=== PATIENT | female | born 1960 | race Caucasian/White ===

== ENCOUNTER → 2016-08-10 | Outpatient (CLI) | payer BC ==
[2016-08-10 08:17] LABS: Basophils # (A) 0.1 k/uL (0-0.2); Basophils % (A) 1 %; CH 30.9; CHCM 33.1; Eosinophils # (A) 0.2 k/uL (0-0.7); Eosinophils % (A) 3 %; HCT 41.9 % (34.0-46.0); HDW 2.43; HGB 13.4 gm/dL (11.4-16.0); Luc % (Auto) 3; Lymphocytes # (A) 1.5 k/uL (1.0-4.8); Lymphocytes % (A) 21 %; MCV 93.9 fL (80.0-100.0); Monocytes # (A) 0.4 k/uL (0-1.0); Monocytes % (A) 5 %; Neutrophils # (A) 4.6 k/uL (1.3-7.7); Neutrophils % (A) 66 %; RBC 4.46 m/uL (3.80-5.40); RDW 13.6 % (11.5-15.5); WBC (Perox) 7.32
[2016-08-10 08:26] LABS: ALT 51 U/L (9-52); AST 27 U/L (14-36); Alkaline Phosphatase 92 U/L (38-126); Anion Gap 12 mmol/L; Blood Urea Nitrogen 17 mg/dL (7-17); Calcium 9.8 mg/dL (8.4-10.2); Carbon Dioxide 28 mmol/L (22-30); Chloride 103 mmol/L (98-107); Cholesterol 167 mg/dL (<200); Glucose 101 mg/dL (74-99); HDL Cholesterol 73 mg/dL (40-60); Non-African American GFR(MDRD) >60 (>60 ml/min/1.73 sqM); Potassium 4.3 mmol/L (3.5-5.1); Sodium 143 mmol/L (137-145); Total Bilirubin 1.1 mg/dL (0.2-1.3); Total Protein 7.6 g/dL (6.3-8.2); Triglycerides 151 mg/dL (<150)
[2016-08-10 08:48] LABS: Appearance,Urine Clear (Clear); Bilirubin,Urine Negative (Negative); Glucose,Urine (UA) Negative (Negative); Ketones,Urine Negative (Negative); Leukocyte Esterase,Urine Negative (Negative); Nitrite,Urine Negative (Negative); Particle Count 164; Protein,Urine Negative (Negative); RBC,Urine <1 /hpf (0-5); UA Billing (MACRO vs. MICRO) MICRO; Urobilinogen,Urine <2.0 mg/dL (<2.0)
[2016-08-10 09:51] LABS: Erythrocyte Sedimentation Rate 10 mm/hr (0-20)
[2016-08-10 13:45] LABS: Hemoglobin A1C 5.7 % (4.2-6.1)
== END ==
LOC: LABWHC1 07:42
PROVIDERS: ATTEND Internal Medicine
DX: Z00.00 Encounter for general adult medical examination without abnormal findings (principal); E11.9 Type 2 diabetes mellitus without complications; E55.9 Vitamin D deficiency, unspecified; M19.90 Unspecified osteoarthritis, unspecified site
CPT/HCPCS: 36415; 80053; 80061; 81001; 82043; 82306; 83036; 85025; 85652

== ENCOUNTER → 2017-03-02 | Outpatient (CLI) | payer BC ==
[2017-03-02 10:22] LABS: Basophils # (A) 0.1 k/uL (0-0.2); Basophils % (A) 1 %; CHCM 32.2; Eosinophils # (A) 0.2 k/uL (0-0.7); Eosinophils % (A) 2 %; HCT 41.9 % (34.0-46.0); HDW 2.43; HGB 13.4 gm/dL (11.4-16.0); Luc # (Auto) 0.16; Luc % (Auto) 2; Lymphocytes # (A) 1.5 k/uL (1.0-4.8); Lymphocytes % (A) 23 %; MCH 30.9 pg (25.0-35.0); MCV 96.7 fL (80.0-100.0); Mean Platelet Volume 6.8; Monocytes # (A) 0.4 k/uL (0-1.0); Monocytes % (A) 6 %; Neutrophils # (A) 4.4 k/uL (1.3-7.7); Neutrophils % (A) 66 %; RBC 4.33 m/uL (3.80-5.40); RDW 13.3 % (11.5-15.5); WBC 6.8 k/uL (3.8-10.6); WBC (Perox) 6.66
[2017-03-02 10:40] LABS: ALT 42 U/L (9-52); AST 25 U/L (14-36); Alkaline Phosphatase 98 U/L (38-126); Anion Gap 12 mmol/L; Blood Urea Nitrogen 18 mg/dL (7-17); Carbon Dioxide 27 mmol/L (22-30); Chloride 106 mmol/L (98-107); Cholesterol 199 mg/dL (<200); Glucose 90 mg/dL (74-99); HDL Cholesterol 86 mg/dL (40-60); Non-African American GFR(MDRD) >60 (>60 ml/min/1.73 sqM); Potassium 4.2 mmol/L (3.5-5.1); Sodium 145 mmol/L (137-145); Total Bilirubin 0.9 mg/dL (0.2-1.3)
[2017-03-02 15:02] LABS: Hemoglobin A1C 5.4 % (4.2-6.1)
== END ==
LOC: LABWHC1 08:31
PROVIDERS: ATTEND Internal Medicine
DX: E11.9 Type 2 diabetes mellitus without complications (principal); E78.5 Hyperlipidemia, unspecified; E55.9 Vitamin D deficiency, unspecified; Z13.9 Encounter for screening, unspecified
CPT/HCPCS: 36415; 80053; 80061; 82306; 83036; 85025; 86803

== ENCOUNTER → 2017-08-21 | Outpatient (CLI) | payer BC ==
[2017-08-21 13:39] VITALS: BP 139/79; PULSE 80; TEMP 98.5; BMI 24.7
--- NOTE | 2017-08-21 14:15 | P.HPOB ---
History of Present Illness H&P Date: 08/21/17 Chief Complaint: The patient is here for her routine gynecologic exam and mammogram. This is a 57-year-old with LMP of 2014. The patient is without gynecologic complaints. She denies any postmenopausal bleeding. Review of Systems She has lost about 10 pounds over the last year. She denies respiratory, cardiac, or G.I. problems. Past Medical History Past Medical History: Diabetes Mellitus (Diet controlled type II diabetes), GERD /Reflux, Hyperlipidemia Additional Past Medical History / Comment(s): mammo 08/21/17 History of Any Multi-Drug Resistant Organisms: None Reported Additional Past Surgical History / Comment(s): Right wrist surgery in 1984. Colonoscopy in 2013. 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 - Past Family History Father Family Medical History: Diabetes Mellitus Mother Family Medical History: Myocardial Infarction ([place]) Additional Family Medical History / Comment(s): Maternal aunt had breast cancer. Medications and Allergies Home Medications and Allergies Comment(s): Vitamin D supplement 1 daily and Tums for calcium 1 b.i.d. Home Medications Medication Instructions Recorded Confirmed Type Iron* 1 tab PO DAILY 10/09/13 08/21/17 History Multivitamins, Thera [Multivitamin] 1 each PO DAILY 10/09/13 08/21/17 History Omeprazole [Omeprazole] 20 mg PO DAILY 10/09/13 08/21/17 History Simvastatin [Simvastatin] 40 mg PO HS 10/09/13 08/21/17 History Allergies Allergy/AdvReac Type Severity Reaction Status Date / Time sulfamethoxazole AdvReac Severe Rash/Hives Unverified 08/21/17 13:41 [From Bactrim] trimethoprim [From Bactrim] AdvReac Severe Rash/Hives Unverified 08/21/17 13:41 penicillin V AdvReac Rash/Hives Verified 08/21/17 13:41 Sulfa (Sulfonamide AdvReac Rash/Hives Verified 08/21/17 13:41 Antibiotics) Exam - Vital Signs Vital signs: Vital Signs Temp Pulse BP 08/21/17 13:36 98.5 F 80 139/79 Intake and Output 08/20/17 08/21/17 08/21/17 22:59 06:59 14:59 Other: Weight 61.235 kg Height 5'2", BMI 24.7. This is a well-developed well-nourished white female who is alert and oriented times 3 in no acute distress. HEENT: Within normal limits. NECK: Supple without mass or thyromegaly. CHEST AND LUNGS: Clear to auscultation. HEART: Regular rate and rhythm. BREASTS: Are without mass or discharge. AXILLARY EXAM: Negative for adenopathy. BACK: Negative for CVA tenderness. ABDOMEN: Soft, nontender, without palpable masses. PELVIC EXAM: Normal external genitalia without significant atrophy. Cervix reveals an end of cervical polyp measuring approximately 5 x 4 mm. This has a benign appearance and is not inflamed. Vagina appears normal. There is no unusual discharge. There is no evidence of prolapse. The uterus is midposition , nongravid size and nontender. There are no palpable adnexal masses or tenderness. RECTAL EXAM: rectovaginal exam is negative for mass or tenderness and is negative for occult blood. EXTREMITIES: Nontender. IMPRESSION: 1. 57 year old female who is now menopausal after 2 years of amenorrhea. 2. Benign appearing endocervical polyp. She was previously referred to Dr. Dickerson for this reason in 2015. The pathology report was benign. The polyp may have grown back and is asymptomatic. PLAN: 1. Pap smear was performed. 2. Breast examination was discussed. 3. Screening mammogram will be done today. 4. We have discussed options for this cervical polyp. We will proceed with conservative management at this time. She will call if she is having problems such as vaginal bleeding including postcoital bleeding. 5. Osteoporosis prevention was discussed. 6. She will return one year and PRN.
--- NOTE | 2017-08-23 13:12 | MM ---
Reason for exam: screening (asymptomatic). Last mammogram was performed 1 year and 5 months ago. History: Patient is postmenopausal. Family history of breast cancer in maternal aunt. Took hormonal contraceptives for 3 years. Physical Findings: A clinical breast exam by your physician is recommended on an annual basis and results should be correlated with mammographic findings. MG 3D Screening Mammo W/Cad Bilateral CC and MLO view(s) were taken. Prior study comparison: March 28, 2016, bilateral MG screening mammo w CAD. November 10, 2014, left breast MG work up mamm w CAD LT. The breast tissue is heterogeneously dense. This may lower the sensitivity of mammography. No significant changes when compared with prior studies. ASSESSMENT: Negative, BI-RAD 1 RECOMMENDATION: Routine screening mammogram of both breasts in 1 year.
== END | disposition home or self-care (01) ==
LOC: WWCWWP 13:18
PROVIDERS: ATTEND Obstetrics & Gynecology
DX: Z12.31 Encounter for screening mammogram for malignant neoplasm of breast (principal)
CPT/HCPCS: 77063; 77067

== ENCOUNTER → 2018-03-04 | Outpatient (CLI) | payer BC ==
[2018-03-04 09:12] LABS: Basophils % (A) 1 %; Eosinophils # (A) 0.1 k/uL (0-0.7); Eosinophils % (A) 3 %; HCT 41.9 % (34.0-46.0); HGB 14.1 gm/dL (11.4-16.0); Lymphocytes # (A) 1.3 k/uL (1.0-4.8); Lymphocytes % (A) 26 %; MCH 30.2 pg (25.0-35.0); MCHC 33.8 g/dL (31.0-37.0); MCV 89.5 fL (80.0-100.0); Mean Platelet Volume 6.3; Monocytes # (A) 0.3 k/uL (0-1.0); Monocytes % (A) 6 %; Neutrophils # (A) 3.2 k/uL (1.3-7.7); Neutrophils % (A) 63 %; Platelet Count 360 k/uL (150-450); RBC 4.68 m/uL (3.80-5.40); RDW 13.5 % (11.5-15.5)
[2018-03-04 09:31] LABS: ALT 26 U/L (9-52); AST 25 U/L (14-36); Albumin 4.6 g/dL (3.5-5.0); Alkaline Phosphatase 100 U/L (38-126); Anion Gap 10 mmol/L; Blood Urea Nitrogen 15 mg/dL (7-17); Calcium 9.9 mg/dL (8.4-10.2); Carbon Dioxide 27 mmol/L (22-30); Chloride 107 mmol/L (98-107); Glucose 92 mg/dL (74-99); HDL Cholesterol 79 mg/dL (40-60); Potassium 4.5 mmol/L (3.5-5.1); Sodium 144 mmol/L (137-145); Total Bilirubin 0.9 mg/dL (0.2-1.3); Total Protein 7.8 g/dL (6.3-8.2); Triglycerides 148 mg/dL (<150)
[2018-03-04 09:47] LABS: Cholesterol 197 mg/dL (<200); LDL Cholesterol,Calculated 88 mg/dL (0-99)
[2018-03-04 10:56] LABS: Appearance,Urine Clear (Clear); Bilirubin,Urine Negative (Negative); Blood,Urine Trace (Negative); Color,Urine Colorless; Glucose,Urine (UA) Negative (Negative); Ketones,Urine Negative (Negative); Leukocyte Esterase,Urine Negative (Negative); Mucus,Urine Rare /hpf; Nitrite,Urine Negative (Negative); PH, Urine 6.5 (5.0-8.0); Protein,Urine Negative (Negative); RBC,Urine <1 /hpf (0-5); Specific Gravity,Urine 1.003 (1.001-1.035); Urobilinogen,Urine <2.0 mg/dL (<2.0); WBC,Urine <1 /hpf (0-5)
[2018-03-04 17:15] LABS: Hemoglobin A1C 5.5 % (4.0-6.0)
== END | disposition home or self-care (01) ==
LOC: LABWHC1 08:07
PROVIDERS: ATTEND Internal Medicine
DX: E78.5 Hyperlipidemia, unspecified (principal); E11.9 Type 2 diabetes mellitus without complications; E55.9 Vitamin D deficiency, unspecified
CPT/HCPCS: 36415; 80053; 80061; 81001; 82043; 82306; 82570; 83036; 85025

== ENCOUNTER → 2018-10-23 | Outpatient (CLI) | payer BC ==
[2018-10-23 10:53] VITALS: BP 127/76; PULSE 73; RESP 12; TEMP 98.6; BMI 26.3
--- NOTE | 2018-10-23 11:35 | P.HPOB ---
History of Present Illness H&P Date: 10/23/18 Chief Complaint: The patient is here for her routine gynecologic exam and ma mmogram. This is a 58-year-old with an LMP of 2014. The patient is without gynecologic complaints and denies any postmenopausal bleeding. She does have occasional mild hot flashes that are not very bothersome. Review of Systems She is gained about 9 pounds over the last year. She denies respiratory, cardiac, or G.I. problems. Past Medical History Past Medical History: Diabetes Mellitus, GERD/Reflux, Hyperlipidemia Additional Past Medical History / Comment(s): Type II diabetes. 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 History of Any Multi-Drug Resistant Organisms: None Reported Past Surgical History: Orthopedic Surgery Additional Past Surgical History / Comment(s): Right wrist surgery in 1984. Colonoscopy in 2013. 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 - Past Family History Father Family Medical History: Diabetes Mellitus Additional Family Medical History / Comment(s): Colon polyps. Mother Family Medical History: Myocardial Infarction ([place]) Additional Family Medical History / Comment(s): Maternal aunt had breast cancer. Medications and Allergies Home Medications Medication Instructions Recorded Confirmed Type Multivitamins, Thera [Multivitamin] 1 each PO DAILY 10/09/13 08/21/17 History Omeprazole 20 mg PO DAILY 10/09/13 08/21/17 History Simvastatin 40 mg PO HS 10/09/13 08/21/17 History Allergies Allergy/AdvReac Type Severity Reaction Status Date / Time sulfamethoxazole AdvReac Severe Rash/Hives Unverified 08/21/17 13:41 [From Bactrim] trimethoprim [From Bactrim] AdvReac Severe Rash/Hives Unverified 08/21/17 13:41 penicillin V AdvReac Rash/Hives Verified 08/21/17 13:41 Sulfa (Sulfonamide AdvReac Rash/Hives Verified 08/21/17 13:41 Antibiotics) Exam Vital Signs Temp Pulse Resp BP 10/23/18 10:42 98.6 F 73 12 127/76 Intake and Output 0510/23/18 10/23/18 22:59 06:59 14:59 Other: Weight 65.317 kg Height 5'2", weight 144 pounds, BMI 26.3. This is a well-developed well-nourished white female who is alert and oriented times 3 in no acute distress. HEENT: Within normal limits. NECK: Supple without mass or thyromegaly. At the medial aspect of the right clavicle, there is a 2.5 cm lipoma which is soft and nontender. CHEST AND LUNGS: Clear to auscultation. HEART: Regular rate and rhythm. BREASTS: Are without mass or discharge. AXILLARY EXAM: Negative for adenopathy. BACK: Negative for CVA tenderness. ABDOMEN: Soft, nontender, without palpable masses. PELVIC EXAM: Normal external genitalia. Vagina appear normal with mild atrophy. There is a benign appearing endocervical polyp at the external os measuring approximately 6 x 6 mm. Which appears stable from her previous exam. There is no unusual discharge. There is no evidence of prolapse. The uterus is midposition, nongravid size and nontender. There are no palpable adnexal masses or tenderness. RECTAL EXAM: rectovaginal exam is negative for mass or tenderness and is negative for occult blood. EXTREMITIES: Nontender. IMPRESSION: 1. 58-year-old menopausal female with stable asymptomatic endocervical polyp. Otherwise unremarkable gynecologic exam. 2. 2.5 cm lipoma near the medial aspect of the right clavicle. PLAN: 1. Pap smear was deferred since she had a normal one on 08/21/2017. 2. Self breast awareness was discussed with the patient. 3. Screening mammogram will be done today. 4. We have discussed the endocervical polyp and lipoma. We will follow both of these conservatively. She was instructed to call if she is having problems such postmenopausal bleeding or if she is noticing change in the lipoma. 5. Osteoporosis prevention was discussed. I have stressed the importance of adequate calcium, vitamin D and regular exercise. Recommended amounts of calcium and vitamin D were also discussed. We will plan on doing bone density testing next year. 6.She was advised to return in one year for her annual well woman exam.
--- NOTE | 2018-10-25 11:11 | MM ---
Reason for exam: screening (asymptomatic). Last mammogram was performed 1 year and 2 months ago. History: Patient is postmenopausal. Family history of breast cancer in maternal aunt. Took hormonal contraceptives for 3 years. Physical Findings: A clinical breast exam by your physician is recommended on an annual basis and results should be correlated with mammographic findings. MG 3D Screening Mammo W/Cad Bilateral CC and MLO view(s) were taken. Prior study comparison: August 21, 2017, bilateral MG 3d screening mammo w/cad. March 28, 2016, bilateral MG screening mammo w CAD. The breast tissue is heterogeneously dense. This may lower the sensitivity of mammography. There are benign appearing round calcifications bilaterally. There is chronic nodularity in the left breast central aspect. There is no discrete abnormality. ASSESSMENT: Benign, BI-RAD 2 RECOMMENDATION: Routine screening mammogram of both breasts in 1 year.
== END ==
LOC: WWCWWP 10:39
PROVIDERS: ATTEND Obstetrics & Gynecology
DX: Z12.31 Encounter for screening mammogram for malignant neoplasm of breast (principal)
CPT/HCPCS: 77063; 77067

== ENCOUNTER → 2019-03-12 | Outpatient (CLI) | payer BC ==
[2019-03-12 08:54] LABS: Basophils # (A) 0.1 k/uL (0-0.2); Basophils % (A) 2 %; Eosinophils # (A) 0.2 k/uL (0-0.7); Eosinophils % (A) 3 %; HCT 45.4 % (34.0-46.0); HGB 14.9 gm/dL (11.4-16.0); Lymphocytes # (A) 1.9 k/uL (1.0-4.8); Lymphocytes % (A) 27 %; MCHC 32.8 g/dL (31.0-37.0); MCV 94.4 fL (80.0-100.0); Mean Platelet Volume 6.5; Monocytes # (A) 0.4 k/uL (0-1.0); Monocytes % (A) 6 %; Neutrophils # (A) 4.1 k/uL (1.3-7.7); Neutrophils % (A) 60 %; Platelet Count 402 k/uL (150-450); RBC 4.81 m/uL (3.80-5.40); RDW 13.7 % (11.5-15.5); WBC 6.9 k/uL (3.8-10.6)
[2019-03-12 09:25] LABS: Appearance,Urine Clear (Clear); Bilirubin,Urine Negative (Negative); Blood,Urine Negative (Negative); Color,Urine Colorless; Glucose,Urine (UA) Negative (Negative); Ketones,Urine Negative (Negative); Leukocyte Esterase,Urine Negative (Negative); Nitrite,Urine Negative (Negative); Protein,Urine Negative (Negative); Specific Gravity,Urine 1.003 (1.001-1.035); Urobilinogen,Urine <2.0 mg/dL (<2.0)
[2019-03-12 16:12] LABS: African American GFR (CKD) 109.9 (60.0-200.0); Albumin 4.8 g/dL (3.80-4.90); Albumin/Globulin Ratio 2.09 (1.60-3.17); Anion Gap 11.1 mmol/L (4.00-12.00); BUN/Creat Ratio 18.57 Ratio (12.00-20.00); Carbon Dioxide 25.9 mmol/L (21.6-31.8); Chol/HDL Ratio 2.71; Globulin 2.3 g/dL (1.6-3.3); LDL Cholesterol,Calculated 92.6 mg/dL (0.0-131.0); Potassium 4.2 mmol/L (3.5-5.5); Total Protein 7.1 g/dL (6.2-8.2); VLDL Calculation 40.4 mg/dL (5.00-40.00)
== END | disposition home or self-care (01) ==
LOC: LABWHC1 07:46
PROVIDERS: ATTEND Internal Medicine
DX: E11.9 Type 2 diabetes mellitus without complications (principal); E78.5 Hyperlipidemia, unspecified; E55.9 Vitamin D deficiency, unspecified
CPT/HCPCS: 36415; 80053; 80061; 81003; 82043; 82306; 82570; 84443; 85025

== ENCOUNTER → 2020-01-21 | Outpatient (CLI) | payer BC ==
[2020-01-21 09:46] VITALS: BP 136/86; PULSE 52; RESP 18; TEMP 98.6
--- NOTE | 2020-01-21 10:19 | P.HPOB ---
History of Present Illness H&P Date: 01/21/20 Chief Complaint: The patient is here for her routine gynecologic exam and ma mmogram. This is a 59-year-old with an LMP of 2014. The patient has a known endocervical polyp which was removed [place] [address] Dickerson and has recurred and has been followed conservatively. She denies any problems with this. She denies any postmenopausal bleeding. She has been experiencing some vaginal dryness with sexual intercourse. She has not tried any lubrication. Review of Systems The patient has gained 6 pounds over the last year. She denies respiratory, cardiac, or G.I. problems. Past Medical History Past Medical History: Diabetes Mellitus, GERD/Reflux, Hyperlipidemia Additional Past Medical History / Comment(s): Type II diabetes. 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 History of Any Multi-Drug Resistant Organisms: None Reported Past Surgical History: Orthopedic Surgery Additional Past Surgical History / Comment(s): Right wrist surgery in 1984. Colonoscopy in 2013. 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 - Past Family History Father Family Medical History: Diabetes Mellitus Additional Family Medical History / Comment(s): Colon polyps. Mother Family Medical History: Myocardial Infarction ([place]) Additional Family Medical History / Comment(s): Maternal aunt had breast cancer. Medications and Allergies Home Medications Medication Instructions Recorded Confirmed Type Multivitamins, Thera [Multivitamin] 1 each PO DAILY 10/09/13 01/21/20 History Omeprazole 20 mg PO AC-LUNCH PRN 10/09/13 01/21/20 History Simvastatin 40 mg PO HS 10/09/13 01/21/20 History Aspirin 81 mg PO HS 01/21/20 01/21/20 History Cholecalciferol [Vitamin D3 (25 2,000 unit PO DAILY 01/21/20 01/21/20 History Mcg = 1000 Iu)] Cyanocobalamin (Vitamin B-12) 3,000 mcg PO DAILY 01/21/20 01/21/20 History [Vitamin B-12] L.acidoph,Paracasei, B.lactis 1 each PO DAILY 01/21/20 01/21/20 History [Probiotic] Ubidecarenone [Co Q-10] 200 mg PO DAILY 01/21/20 01/21/20 History Allergies Allergy/AdvReac Type Severity Reaction Status Date / Time sulfamethoxazole AdvReac Severe Rash/Hives Unverified 01/21/20 09:39 [From Bactrim] trimethoprim [From Bactrim] AdvReac Severe Rash/Hives Unverified 01/21/20 09:39 penicillin V AdvReac Rash/Hives Verified 01/21/20 09:39 Sulfa (Sulfonamide AdvReac Rash/Hives Verified 01/21/20 09:39 Antibiotics) Exam Vital Signs Temp Pulse Resp BP Pulse Ox 01/21/20 09:43 98.6 F 52 L 18 136/86 98 Intake and Output 01/20/20 01/21/20 01/21/20 22:59 06:59 14:59 Other: Weight 68.039 kg Height 5 feet 2-1/2 inches, weight 150 pounds, BMI 27.0. This is a well-developed well-nourished white female who is alert and oriented times 3 in no acute distress. HEENT: Within normal limits. NECK: Supple without mass or thyromegaly. CHEST AND LUNGS: Clear to auscultation. HEART: Regular rate and rhythm. BREASTS: Are without mass or discharge. AXILLARY EXAM: Negative for adenopathy. BACK: Negative for CVA tenderness. ABDOMEN: Soft, nontender, without palpable masses. PELVIC EXAM: Normal external genitalia with mild atrophy. Vagina appear normal. There is an endocervical polyp measuring approximately 0.5 cm and appears benign and unchanged from her previous exam. The rest of the cervix is unremarkable.. There is no unusual discharge. There is no evidence of prolapse. The uterus is midposition, nongravid size and nontender. There are no palpable adnexal masses or tenderness. RECTAL EXAM: Rectovaginal exam is negative for mass or tenderness and is negative for occult blood. EXTREMITIES: Nontender. IMPRESSION: 1. 59-year-old menopausal female with stable asymptomatic endocervical polyp measuring approximately 0.5 cm. Otherwise unremarkable gynecologic exam. 2. History of osteopenia 3. Vaginal dryness with intercourse secondary to genital atrophy from menopause. PLAN: 1. Pap smear was performed. 2. Self breast awareness was discussed with the patient. 3. Screening mammogram will be done today. 4. Osteoporosis prevention was discussed. I have stressed the importance of adequate calcium, vitamin D and regular exercise. Recommended amounts of calcium and vitamin D were also discussed. I have recommended to repeat the bone density test in approximately 1 1/2-2 years 5. She will try an [id number] lubricant for vaginal dryness. We have discussed the option of vaginal estrogen if her symptoms are not improving. She was instructed to call if she would like to proceed with using vaginal estrogen. 6.She was advised to return in one year for her annual well woman exam.
--- NOTE | 2020-01-22 10:24 | MM ---
Reason for exam: screening (asymptomatic). Last mammogram was performed 1 year and 3 months ago. History: Patient is postmenopausal. Family history of breast cancer in maternal aunt. Took hormonal contraceptives for 3 years. Physical Findings: A clinical breast exam by your physician is recommended on an annual basis and results should be correlated with mammographic findings. MG 3D Screening Mammo W/Cad Bilateral CC and MLO view(s) were taken. Prior study comparison: October 23, 2018, bilateral MG 3d screening mammo w/cad. August 21, 2017, bilateral MG 3d screening mammo w/cad. The breast tissue is heterogeneously dense. This may lower the sensitivity of mammography. There are benign appearing round dystrophic calcifications bilaterally. There is no discrete abnormality. ASSESSMENT: Benign, BI-RAD 2 RECOMMENDATION: Routine screening mammogram of both breasts in 1 year.
--- NOTE | 2020-01-27 17:24 | P.PN ---
Progress Note - Text Progress Note Date: 01/27/20 OUTPATIENT FOLLOW-UP NOTE TEST(S)/RESULTS: test results from 01/21/2020 include negative Pap smear and benign mammogram. METHOD OF NOTIFICATION: the patient was notified by phone. PATIENT COMMENTS: the patient is happy to hear these results. DIAGNOSIS: negative Pap smear and benign mammogram. DISCUSSION: PLAN: the patient is to return in one year for her annual well woman exam.
== END | disposition home or self-care (01) ==
LOC: WWCWWP 09:29
PROVIDERS: ATTEND Obstetrics & Gynecology
DX: Z12.31 Encounter for screening mammogram for malignant neoplasm of breast (principal)
CPT/HCPCS: 77063; 77067

== ENCOUNTER → 2020-03-12 | Outpatient (CLI) | payer BC ==
[2020-03-12 10:34] LABS: Appearance,Urine Clear (Clear); Bilirubin,Urine Negative (Negative); Blood,Urine Negative (Negative); Color,Urine Colorless; Glucose,Urine (UA) Negative (Negative); Ketones,Urine Negative (Negative); Leukocyte Esterase,Urine Negative (Negative); Nitrite,Urine Negative (Negative); Protein,Urine Negative (Negative); Specific Gravity,Urine 1.002 (1.001-1.035); Urobilinogen,Urine <2.0 mg/dL (<2.0)
[2020-03-12 10:51] LABS: HCT 42.9 % (34.0-46.0); HGB 13.6 gm/dL (11.4-16.0); MCH 30.1 pg (25.0-35.0); MCHC 31.7 g/dL (31.0-37.0); MCV 94.9 fL (80.0-100.0); Mean Platelet Volume 7.9; Platelet Count 374 k/uL (150-450); RBC 4.52 m/uL (3.80-5.40); RDW 13.9 % (11.5-15.5); WBC 6.5 k/uL (3.8-10.6)
[2020-03-12 13:24] LABS: Eosinophils # (M) 0.59 k/uL (0-0.7); Lymphocytes # (M) 1.63 k/uL (1.0-4.8); Monocytes # (M) 0.39 k/uL (0-1.0); Neutrophils % (M) 60 %; Nucleated Red Blood Cells 0 /100 WBC (0-0); Total Cells Counted 100
[2020-03-12 13:27] LABS: Anisocytosis (M) Present; Poikilocytosis (M) Present
[2020-03-12 17:49] LABS: Hemoglobin A1C 5.6 % (4.0-6.0)
[2020-03-12 17:53] LABS: African American GFR (CKD) 92.9 (60.0-200.0); Albumin 4.5 g/dL (3.80-4.90); Albumin/Globulin Ratio 1.88 (1.60-3.17); Anion Gap 10.4 mmol/L (4.00-12.00); BUN/Creat Ratio 17.5 Ratio (12.00-20.00); Calcium 9.7 mg/dL (8.7-10.3); Carbon Dioxide 24.6 mmol/L (21.6-31.8); Chol/HDL Ratio 2.79; Globulin 2.4 g/dL (1.6-3.3); Non-African American GFR(CKD) 80.1 (60.0-200.0); Potassium 4.7 mmol/L (3.5-5.5); Total Bilirubin 1.3 mg/dL (0.2-1.2); Total Protein 6.9 g/dL (6.2-8.2)
[2020-03-12 18:44] LABS: Microalbumin Creatinine Ratio <30 mg/g Creat (0-30); Urine Creatinine 11.4 mg/dL
== END | disposition home or self-care (01) ==
LOC: LABWHC1 08:00
PROVIDERS: ATTEND Internal Medicine
DX: E78.5 Hyperlipidemia, unspecified (principal); E55.9 Vitamin D deficiency, unspecified; E11.9 Type 2 diabetes mellitus without complications
CPT/HCPCS: 36415; 80053; 80061; 81003; 82043; 82306; 82570; 83036; 84443; 85025

== ENCOUNTER → 2021-02-22 | Outpatient (CLI) | payer BC ==
[2021-02-22 09:43] VITALS: BP 129/73; PULSE 86; RESP 16; TEMP 98.9
--- NOTE | 2021-02-22 10:23 | P.HPOB ---
History of Present Illness H&P Date: 02/22/21 Chief Complaint: The patient is here for her routine gynecologic exam and ma mmogram. This is a 60-year-old with an LMP of 2014. Patient does have occasional hot flashes that seem to come and go. She is otherwise without complaints and denies any postmenopausal bleeding. Review of Systems The patient has gained 7 pounds over the last year. She denies respiratory, cardiac, or G.I. problems. Past Medical History Past Medical History: Diabetes Mellitus, GERD/Reflux, Hyperlipidemia Additional Past Medical History / Comment(s): Type II diabetes. 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 History of Any Multi-Drug Resistant Organisms: None Reported Past Surgical History: Orthopedic Surgery Additional Past Surgical History / Comment(s): Right wrist surgery in 1984. Colonoscopy in 2013(next after 8yr). 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 - Past Family History Father Family Medical History: Diabetes Mellitus Additional Family Medical History / Comment(s): Colon polyps. Mother Family Medical History: Myocardial Infarction ([place]) Additional Family Medical History / Comment(s): Maternal aunt had breast cancer. Medications and Allergies Home Medications Medication Instructions Recorded Confirmed Type Multivitamins, Thera [Multivitamin] 1 each PO DAILY 10/09/13 02/22/21 History Omeprazole 20 mg PO AC-LUNCH PRN 10/09/13 02/22/21 History Simvastatin 40 mg PO HS 10/09/13 02/22/21 History Aspirin 81 mg PO HS 01/21/20 02/22/21 History Cholecalciferol [Vitamin D3 (25 2,000 unit PO DAILY 01/21/20 02/22/21 History Mcg = 1000 Iu)] Cyanocobalamin (Vitamin B-12) 3,000 mcg PO DAILY 01/21/20 02/22/21 History [Vitamin B-12] L.acidoph,Paracasei, B.lactis 1 each PO DAILY 01/21/20 02/22/21 History [Probiotic] Ubidecarenone [Co Q-10] 200 mg PO DAILY 08/26/20 09/28/21 History Allergies Allergy/AdvReac Type Severity Reaction Status Date / Time sulfamethoxazole AdvReac Severe Rash/Hives Unverified 02/22/21 09:24 [From Bactrim] trimethoprim [From Bactrim] AdvReac Severe Rash/Hives Unverified 02/22/21 09:24 penicillin V AdvReac Rash/Hives Verified 02/22/21 09:24 Sulfa (Sulfonamide AdvReac Rash/Hives Verified 02/22/21 09:24 Antibiotics) Exam Vital Signs Temp Pulse Resp BP Pulse Ox 02/22/21 09:39 98.9 F 86 16 129/73 98 Intake and Output 02/21/21 02/22/21 02/22/21 22:59 06:59 14:59 Other: Weight 71.214 kg Height 5 feet 2 inches, weight 157 pounds, BMI 28.7. This is a well-developed well-nourished white female who is alert and oriented times 3 in no acute distress. HEENT: Within normal limits. NECK: Supple without mass or thyromegaly. CHEST AND LUNGS: Clear to auscultation. HEART: Regular rate and rhythm. BREASTS: Are without mass or discharge. AXILLARY EXAM: Negative for adenopathy. BACK: Negative for CVA tenderness. ABDOMEN: Soft, nontender, without palpable masses. PELVIC EXAM: Normal external genitalia with mild atrophy. The cervix has a small benign appearing endocervical polyp measuring 0.5 cm at the 6 o'clock position and is unchanged from her previous exam. There are no other cervical lesions. The vagina appears normal with mild atrophy. There is no unusual discharge. There is no evidence of prolapse. The uterus is midposition, nongravid size and nontender. There are no palpable adnexal masses or tenderness. RECTAL EXAM: Rectovaginal exam is negative for mass or tenderness and is negative for occult blood. EXTREMITIES: Nontender. IMPRESSION: 1. 60-year-old menopausal female with stable asymptomatic endocervical polyp measuring approximately 0.5 cm, which is unchanged. Otherwise unremarkable gynecologic exam. 2. History of osteopenia. PLAN: 1. Pap smear was deferred since it was negative on 01/21/2020. 2. Self breast awareness was discussed with the patient. We have also discussed symptoms associated with inflammatory breast cancer. 3. Screening mammogram will be done today. 4. Osteoporosis prevention was discussed. I have stressed the importance of adequate calcium, vitamin D and regular exercise. Recommended amounts of calcium and vitamin D were also discussed. 5. She has completed her Covid vaccination series. 6. She was advised to return in one year for her annual well woman exam.
--- NOTE | 2021-02-23 09:47 | MM ---
Reason for exam: screening (asymptomatic). Last mammogram was performed 1 year and 1 month ago. History: Patient is postmenopausal. Family history of breast cancer in maternal aunt. Took hormonal contraceptives for 3 years. Physical Findings: A clinical breast exam by your physician is recommended on an annual basis and results should be correlated with mammographic findings. MG 3D Screening Mammo W/Cad Bilateral CC and MLO view(s) were taken. Prior study comparison: January 21, 2020, bilateral MG 3d screening mammo w/cad. October 23, 2018, bilateral MG 3d screening mammo w/cad. The breast tissue is heterogeneously dense. This may lower the sensitivity of mammography. There is no discrete abnormality. No significant changes when compared with prior studies. ASSESSMENT: Negative, BI-RAD 1 RECOMMENDATION: Routine screening mammogram of both breasts in 1 year.
== END | disposition home or self-care (01) ==
LOC: WWCWWP 09:15
PROVIDERS: ATTEND Obstetrics & Gynecology
DX: Z12.31 Encounter for screening mammogram for malignant neoplasm of breast (principal); Z80.3 Family history of malignant neoplasm of breast
CPT/HCPCS: 77063; 77067

== ENCOUNTER → 2021-03-16 | Outpatient (CLI) | payer BC ==
[2021-03-16 11:41] LABS: Basophils # (A) 0.07 X 10*3/uL (0.00-0.10); Basophils % (A) 1.1 %; Eosinophils # (A) 0.17 X 10*3/uL (0.04-0.35); Eosinophils % (A) 2.7 %; HCT 41.4 % (37.2-46.3); HGB 13.6 g/dL (12.0-15.0); Lymphocytes # (A) 1.92 X 10*3/uL (0.90-5.00); Lymphocytes % (A) 30.2 %; MCH 30.2 pg (27.0-32.0); MCHC 32.9 g/dL (32.0-37.0); MCV 91.8 fL (80.0-97.0); Mean Platelet Volume 9.5 fL (9.5-12.2); Monocytes # (A) 0.53 X 10*3/uL (0.20-1.00); Monocytes % (A) 8.3 %; Neutrophils # (A) 3.62 X 10*3/uL (1.80-7.70); Neutrophils % (A) 57.1 %; Platelet Count 390 X 10*3/uL (140-440); RBC 4.51 X 10*6/uL (4.10-5.20); RDW 13.3 % (11.5-14.5); WBC 6.35 X 10*3/uL (4.50-10.00)
[2021-03-16 12:22] LABS: % Iron Saturation 16.66 (12.00-45.00); African American GFR (CKD) 92.2 (60.0-200.0); Albumin 4.8 g/dL (3.8-4.9); Albumin/Globulin Ratio 1.85 (1.60-3.17); BUN/Creat Ratio 15.63 Ratio (12.00-20.00); Blood Urea Nitrogen 12.5 mg/dL (9.0-27.0); Calcium 9.8 mg/dL (8.7-10.3); Chol/HDL Ratio 3.4 Ratio; Ferritin 77.3 ng/mL (10.0-291.0); Globulin 2.6 g/dL (1.6-3.3); HDL Cholesterol 59.2 mg/dL (40.00-60.00); LDL Cholesterol,Calculated 95.2 mg/dL (0.0-131.0); Magnesium 2.4 mg/dL (1.5-2.4); Non-African American GFR(CKD) 79.6 (60.0-200.0); Potassium 4.3 mmol/L (3.5-5.5); T4, Free (Free Thyroxine) 1.63 ng/dL (0.800-1.800); Total Protein 7.4 g/dL (6.2-8.2); VLDL Calculation 46.6 mg/dL (5.00-40.00)
[2021-03-16 12:43] LABS: Microalbumin Creatinine Ratio <30 mg/g Creat (0-30); Urine Creatinine 12.2 mg/dL (28.0-217.0)
== END | disposition home or self-care (01) ==
LOC: LABWHC1 07:29
PROVIDERS: ATTEND Internal Medicine
DX: E78.2 Mixed hyperlipidemia (principal); E11.9 Type 2 diabetes mellitus without complications; M85.80 Other specified disorders of bone density and structure, unspecified site; D64.9 Anemia, unspecified; K21.9 Gastro-esophageal reflux disease without esophagitis
CPT/HCPCS: 36415; 80053; 80061; 82043; 82306; 82570; 82728; 83036; 83540; 83550; 83735; 84439; 84443; 85025

== ENCOUNTER → 2021-07-06 | Outpatient (CLI) | payer BC ==
[2021-07-06 11:29] LABS: Basophils # (A) 0.06 X 10*3/uL (0.00-0.10); Basophils % (A) 0.9 %; HCT 42.7 % (37.2-46.3); HGB 13.9 g/dL (12.0-15.0); Immature Grans, Automated 0.5 %; Lymphocytes # (A) 1.69 X 10*3/uL (0.90-5.00); Lymphocytes % (A) 25.5 %; MCH 29.8 pg (27.0-32.0); MCHC 32.6 g/dL (32.0-37.0); MCV 91.6 fL (80.0-97.0); Mean Platelet Volume 9.4 fL (9.5-12.2); Monocytes # (A) 0.52 X 10*3/uL (0.20-1.00); Monocytes % (A) 7.8 %; NRBC Per 100 WBC 0 /100 WBCS (0.0-0.0); Neutrophils # (A) 4.13 X 10*3/uL (1.80-7.70); Neutrophils % (A) 62.3 %; Platelet Count 376 X 10*3/uL (140-440); RBC 4.66 X 10*6/uL (4.10-5.20); RDW 13.2 % (11.5-14.5); WBC 6.63 X 10*3/uL (4.50-10.00)
[2021-07-06 17:46] LABS: ALT 40 U/L (8-44); AST 26 U/L (13-35); African American GFR (CKD) 89.1 (60.0-200.0); Albumin 4.7 g/dL (3.8-4.9); Albumin/Globulin Ratio 1.71 (1.60-3.17); Alkaline Phosphatase 117 U/L (41-126); Calcium 10.3 mg/dL (8.7-10.3); Carbon Dioxide 20.5 mmol/L (20.0-27.5); Chloride 107 mmol/L (96-109); Chol/HDL Ratio 2.99 Ratio; Globulin 2.8 g/dL (1.6-3.3); Glucose 104 mg/dL (70-110); LDL Cholesterol,Calculated 73.7 mg/dL (0.0-131.0); Non-African American GFR(CKD) 76.9 (60.0-200.0); Potassium 4.5 mmol/L (3.5-5.5); Sodium 143 mmol/L (135-145); Total Protein 7.5 g/dL (6.2-8.2)
[2021-07-07 10:59] LABS: Lipoprotein A 12 mg/dL (0-30)
== END | disposition home or self-care (01) ==
LOC: LABWHC1 07:57
PROVIDERS: ATTEND Internal Medicine
DX: Z00.00 Encounter for general adult medical examination without abnormal findings (principal); M85.80 Other specified disorders of bone density and structure, unspecified site; E11.9 Type 2 diabetes mellitus without complications; E78.2 Mixed hyperlipidemia; Z82.2 Family history of deafness and hearing loss
CPT/HCPCS: 36415; 80053; 80061; 82172; 82306; 83036; 83695; 84443; 85025; 86141

== ENCOUNTER → 2021-11-30 | Outpatient (CLI) | payer BC ==
[2021-11-30 14:21] LABS: Basophils # (A) 0.07 X 10*3/uL (0.00-0.10); Eosinophils # (A) 0.24 X 10*3/uL (0.04-0.35); Eosinophils % (A) 3.5 %; HCT 43.2 % (37.2-46.3); HGB 13.5 g/dL (12.0-15.0); Immature Grans, Automated 0.6 %; Lymphocytes # (A) 1.86 X 10*3/uL (0.90-5.00); Lymphocytes % (A) 27.3 %; MCH 29.3 pg (27.0-32.0); MCHC 31.3 g/dL (32.0-37.0); MCV 93.7 fL (80.0-97.0); Mean Platelet Volume 9.6 fL (9.5-12.2); Monocytes # (A) 0.51 X 10*3/uL (0.20-1.00); Monocytes % (A) 7.5 %; NRBC Per 100 WBC 0 /100 WBCS (0.0-0.0); Neutrophils % (A) 60.1 %; Platelet Count 363 X 10*3/uL (140-440); RBC 4.61 X 10*6/uL (4.10-5.20); RDW 13.5 % (11.5-14.5); WBC 6.82 X 10*3/uL (4.50-10.00)
[2021-11-30 15:19] LABS: ALT 39 U/L (8-44); AST 26 U/L (13-35); African American GFR (CKD) 91.7 (60.0-200.0); Albumin 4.7 g/dL (3.8-4.9); Albumin/Globulin Ratio 1.63 (1.60-3.17); Alkaline Phosphatase 102 U/L (41-126); BUN/Creat Ratio 16.02 Ratio (12.00-20.00); Blood Urea Nitrogen 12.8 mg/dL (9.0-27.0); Calcium 9.7 mg/dL (8.7-10.3); Carbon Dioxide 23.6 mmol/L (20.0-27.5); Chloride 105 mmol/L (96-109); Chol/HDL Ratio 3.29 Ratio; Globulin 2.9 g/dL (1.6-3.3); Glucose 108 mg/dL (70-110); LDL Cholesterol,Calculated 81.4 mg/dL (0.0-131.0); Non-African American GFR(CKD) 79.1 (60.0-200.0); Potassium 4.1 mmol/L (3.5-5.5); Sodium 141 mmol/L (135-145); Total Protein 7.6 g/dL (6.2-8.2)
== END | disposition home or self-care (01) ==
LOC: LABWHC1 08:03
PROVIDERS: ATTEND Internal Medicine
DX: K21.9 Gastro-esophageal reflux disease without esophagitis (principal); E78.2 Mixed hyperlipidemia; E11.9 Type 2 diabetes mellitus without complications
CPT/HCPCS: 36415; 80053; 80061; 83036; 85025

== ENCOUNTER → 2022-04-27 | Outpatient (CLI) | payer BC ==
[2022-04-27 10:33] LABS: Basophils # (A) 0.07 X 10*3/uL (0.00-0.10); Eosinophils # (A) 0.27 X 10*3/uL (0.04-0.35); HCT 41.8 % (37.2-46.3); HGB 13.8 g/dL (12.0-15.0); Immature Grans, Automated 0.6 %; Lymphocytes # (A) 1.87 X 10*3/uL (0.90-5.00); MCH 30.3 pg (27.0-32.0); MCV 91.9 fL (80.0-97.0); Mean Platelet Volume 9.4 fL (9.5-12.2); Monocytes # (A) 0.44 X 10*3/uL (0.20-1.00); Monocytes % (A) 6.6 %; NRBC Per 100 WBC 0 /100 WBCS (0.0-0.0); Neutrophils # (A) 3.99 X 10*3/uL (1.80-7.70); Neutrophils % (A) 59.8 %; Platelet Count 375 X 10*3/uL (140-440); RBC 4.55 X 10*6/uL (4.10-5.20); RDW 13.3 % (11.5-14.5); WBC 6.68 X 10*3/uL (4.50-10.00)
[2022-04-27 16:31] LABS: ALT 44 U/L (8-44); AST 30 U/L (13-35); African American GFR (CKD) 84.2 (60.0-200.0); Albumin 4.7 g/dL (3.8-4.9); Albumin/Globulin Ratio 1.54 (1.60-3.17); Alkaline Phosphatase 119 U/L (41-126); BUN/Creat Ratio 15.38 Ratio (12.00-20.00); Blood Urea Nitrogen 13.2 mg/dL (9.0-27.0); Carbon Dioxide 22.1 mmol/L (20.0-27.5); Chloride 105 mmol/L (96-109); Chol/HDL Ratio 3.02 Ratio; Globulin 3.1 g/dL (1.6-3.3); Glucose 107 mg/dL (70-110); LDL Cholesterol,Calculated 84.4 mg/dL (0.0-131.0); Magnesium 2.3 mg/dL (1.5-2.4); Non-African American GFR(CKD) 72.6 (60.0-200.0); Potassium 4.9 mmol/L (3.5-5.5); Sodium 141 mmol/L (135-145); Total Protein 7.8 g/dL (6.2-8.2)
[2022-04-27 16:39] LABS: Appearance,Urine Clear (Clear); Bilirubin,Urine Negative (Negative); Blood,Urine Negative (Negative); Color,Urine Yellow (Yellow); Ketones,Urine Negative (Negative); Nitrite,Urine Negative (Negative); PH, Urine 6.5 (5.0-8.0); Specific Gravity,Urine 1.003 (1.001-1.030); Urobilinogen,Urine 0.2 (0.2,1.0)
== END | disposition home or self-care (01) ==
LOC: LABWHC1 07:57
PROVIDERS: ATTEND Internal Medicine
DX: I10 Essential (primary) hypertension (principal); E11.9 Type 2 diabetes mellitus without complications; E78.2 Mixed hyperlipidemia; M85.80 Other specified disorders of bone density and structure, unspecified site
CPT/HCPCS: 36415; 80053; 80061; 81003; 82043; 82306; 82570; 83036; 83735; 84439; 84443; 85025

== ENCOUNTER → 2022-05-02 | Outpatient (CLI) | payer BC ==
[2022-05-02 12:39] VITALS: BP 130/82; PULSE 82; RESP 16; TEMP 97.9
--- NOTE | 2022-05-02 13:40 | P.HPOB ---
History of Present Illness H&P Date: 05/02/22 Chief Complaint: The patient is here for her routine gynecologic exam and ma mmogram. This is a 61-year-old with an LMP of 2014. The patient is without gynecologic complaints and denies any postmenopausal bleeding. The patient had a recent bone density test done at [facility] through her PCP. She believes it showed osteopenia, but her new PCP recommended alendronate. She used alendronate briefly, but she had significant nausea and vomiting with the medication so she discontinued it. Review of Systems The patient has gained 2 pounds over the last year. She denies respiratory, cardiac, or G.I. problems. Past Medical History Past Medical History: Diabetes Mellitus, GERD/Reflux, Hyperlipidemia Additional Past Medical History / Comment(s): Type II diabetes. Osteopenia. 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 BRCA 1/2 testing was negative 05/29/20. History of Any Multi-Drug Resistant Organisms: None Reported Past Surgical History: Orthopedic Surgery Additional Past Surgical History / Comment(s): Right wrist surgery in 1984. Colonoscopy in 2013(next after 8yr). Past Psychological History: No Psychological Hx Reported Smoking Status: Never smoker Past Alcohol Use History: None Reported Past Drug Use History: None Reported Additional History: The patient has been since 1980. 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 - Past Family History Father Family Medical History: Diabetes Mellitus Additional Family Medical History / Comment(s): Colon polyps. Mother Family Medical History: Myocardial Infarction ([place]) Additional Family Medical History / Comment(s): Maternal aunt had breast cancer at age 39. Daughter(s) Additional Family Medical History / Comment(s): Benign breast tumor. Medications and Allergies Home Medications Medication Instructions Recorded Confirmed Type Multivitamins, Thera [Multivitamin] 1 each PO DAILY 10/09/13 05/02/22 History Omeprazole 20 mg PO AC-LUNCH PRN 10/09/13 05/02/22 History Aspirin 81 mg PO HS 01/21/20 05/02/22 History Cholecalciferol [Vitamin D3 (25 2,000 unit PO DAILY 01/21/20 05/02/22 History Mcg = 1000 Iu)] Cyanocobalamin (Vitamin B-12) 3,000 mcg PO DAILY 01/21/20 05/02/22 History [Vitamin B-12] L.acidoph,Paracasei, B.lactis 1 each PO DAILY 01/21/20 05/02/22 History [Probiotic] Ubidecarenone [Co Q-10] 200 mg PO DAILY 01/21/20 05/02/22 History Glucosamine/Chondro Bautista A [Cosamin 2 tablet PO DAILY 05/02/22 05/02/22 History Ds Tablet] Metoprolol Succinate [Metoprolol 25 mg PO DAILY 05/02/22 05/02/22 History Succinate ER] Rosuvastatin [Crestor] 20 mg PO DAILY 05/02/22 05/02/22 History lisinopriL 2.5 mg PO DAILY 05/02/22 05/02/22 History Allergies Allergy/AdvReac Type Severity Reaction Status Date / Time sulfamethoxazole AdvReac Severe Rash/Hives Unverified 05/02/22 12:33 [From Bactrim] trimethoprim [From Bactrim] AdvReac Severe Rash/Hives Unverified 05/02/22 12:33 penicillin V AdvReac Rash/Hives Verified 05/02/22 12:33 Sulfa (Sulfonamide AdvReac Rash/Hives Verified 05/02/22 12:33 Antibiotics) Exam Vital Signs Temp Pulse Resp BP Pulse Ox 05/02/22 12:36 97.9 F 82 16 130/82 98 Intake and Output 05/01/22 05/02/22 05/02/22 22:59 06:59 14:59 Other: Weight 72.121 kg Height 5 feet 2 inches, weight 159 pounds, BMI 29.1. This is a well-developed well-nourished white female who is alert and oriented times 3 in no acute distress. HEENT: Within normal limits. NECK: Supple without mass or thyromegaly. CHEST AND LUNGS: Clear to auscultation. HEART: Regular rate and rhythm. BREASTS: Are without mass or discharge. AXILLARY EXAM: Negative for adenopathy. BACK: Negative for CVA tenderness. ABDOMEN: Soft, nontender, without palpable masses. PELVIC EXAM: Normal external genitalia with mild atrophy. Cervix continues to have a small benign-appearing endocervical polyp measuring 0.5 cm at the 6 o'clock position. This is unchanged from her previous exam. Vagina appears normal with mild atrophy. There is no unusual discharge. There is a grade 2 rectocele. The uterus is midposition, nongravid size and nontender. There are no palpable adnexal masses or tenderness. RECTAL EXAM: Rectovaginal exam is negative for mass or tenderness and is negati ve for occult blood. The rectal exam does confirm a small rectocele. EXTREMITIES: Nontender. IMPRESSION: 1. 61-year-old menopausal female with stable asymptomatic endocervical polyp measuring approximately 0.5 cm, which is unchanged. 2. Asymptomatic grade 2 rectocele. 3. History of osteopenia. She recently was put on alendronate by her PCP, but did not tolerate it because of GI symptoms. 4. Family history of breast cancer and a second degree relative at a young age. Her daughter also had a benign breast tumor. The patient was tested for BRCA1 and 2 on 05/29/2020 and this was negative. No clinically significant variance were detected by a 36 gene analysis. PLAN: 1. Pap smear cotest was performed. 2. Self breast awareness was discussed with the patient. We have also discussed symptoms associated with inflammatory breast cancer. 3. Screening mammogram was done today. 4. Osteoporosis prevention was discussed. I have stressed the importance of adequate calcium, vitamin D and regular exercise. Recommended amounts of calcium and vitamin D were also discussed. We will have her sign a records release to get her bone density test done at [facility] this [place]. 5. She has completed her Covid vaccination series and has received 1 booster. 6. She was advised to return in one year for her annual well woman exam.
--- NOTE | 2022-05-02 15:13 | P.PN ---
Progress Note - Text Progress Note Date: 05/02/22 OUTPATIENT FOLLOW-UP NOTE TEST(S)/RESULTS: Bone density test done at [facility] on 07/08/2021 showed osteopenia. METHOD OF NOTIFICATION: Patient was notified by phone. PATIENT COMMENTS: DIAGNOSIS: Osteopenia. DISCUSSION: This seems to be a slight decrease in bone density compared to her 2019 bone density test. I have stressed the importance of adequate calcium, vitamin D, and regular exercise. We will plan on repeating this in approximately 2-3 years. She did not tolerate alendronate as prescribed by her PCP. PLAN: As above.
--- NOTE | 2022-05-03 09:14 | MM ---
Reason for Exam: Screening (asymptomatic). Last mammogram was performed 1 year(s) and 3 month(s) ago. Patient History: Menarche at age 11. First Full-Term at age 24. Postmenopausal. Patient used Hormonal Contraceptives for 3 years. Maternal aunt had breast cancer. Risk Values: Antonietta 5 year model risk: 1.7%. NCI Lifetime model risk: 7.7%. Prior Study Comparison: 10/23/2018 Bilateral Screening Mammogram, [facility]. 01/21/2020 Bilateral Screening Mammogram, [facility]. 02/22/2021 Bilateral Screening Mammogram, [facility]. Tissue Density: There are scattered fibroglandular densities. Findings: Analyzed By CAD. There is no suspicious new group of microcalcifications or new suspicious mass in either breast. Overall Assessment: Negative, BI-RAD 1 Management: Screening Mammogram of both breasts in 1 year. A clinical breast exam by your physician is recommended on an annual basis and results should be correlated with mammographic findings. Electronically signed and approved by: Emile Llanos M.D.
== END | disposition home or self-care (01) ==
LOC: RADMAMWWP 11:59
PROVIDERS: ATTEND Obstetrics & Gynecology
DX: Z12.31 Encounter for screening mammogram for malignant neoplasm of breast (principal); E78.5 Hyperlipidemia, unspecified; E11.9 Type 2 diabetes mellitus without complications; Z79.82 Long term (current) use of aspirin
CPT/HCPCS: 77063; 77067

== ENCOUNTER 2022-08-11 05:42 | Day surgery (SDC) | payer BC ==
[2022-08-11] MEDS ORDERED: LIDOCAINE 1% (10MG/ML) FOR IV START INTRADERMA PRN (05:51)
[2022-08-11] MEDS ORDERED: LACTATED RINGERS 1,000 ML IV SCH (05:51)
[2022-08-11] MEDS ORDERED: LACTATED RINGERS 1,000 ML IV ONE (06:18)
[2022-08-11 06:44] VITALS: RESP 16; TEMP 98.1
[2022-08-11 06:44] LABS: Glucose,Whole Blood 112 mg/dL (70-110)
[2022-08-11] MEDS ORDERED: LIDOCAINE 2% INJ 20 MG/ML (2 ML VIAL) ONE (06:55)
[2022-08-11] MEDS ORDERED: PROPOFOL 10 MG/ML 20 ML VIAL IV ONE (06:55)
[2022-08-11] MEDS ORDERED: ONDANSETRON 4 MG/2 ML VIAL IVP PRN (07:00)
--- NOTE | 2022-08-11 07:15 | P.PCN ---
Date of Procedure: 08/11/22 Procedure(s) Performed: Brief history: Patient is a pleasant 62-year-old white female scheduled for an elective upper endoscopy as well as colonoscopy as a part of evaluation of long-standing history of GERD and screening for colon cancer. Her last colonoscopy was 10 years ago. Procedure performed: Esophagogastroduodenoscopy with biopsy Colonoscopy with snare polypectomy. Preoperative diagnosis: GERD Screening for colon cancer Anesthesia: MAC Procedure: After informed consent was obtained from the patient was brought into the endoscopy unit and IV sedation was administered by anesthesia under continuous monitoring. Initially upper endoscopy was done. The Olympus GF 160 video endoscope was inserted inserted into the mouth and esophagus intubated without any difficulty and was gradually advanced into the stomach and duodenum and carefully examined. The bulb and second part of the duodenum appeared normal. The scope was then withdrawn into the stomach adequately insufflated with air and upon careful examination the antrum had mild antral gastritis and biopsies were done from this area. Mucosa of the body, cardia and fundus appeared normal. The scope was then withdrawn into the esophagus. Small hiatal hernia noted. The GE junction was located at 40 cm to the incisors. It appeared regular with superficial erosions consistent with LA grade B reflux esophagitis.. Rest of the esophagus appeared normal. Patient tolerated the procedure well. At this time the patient continued to remain sedation. Initial digital rectal examination was normal. Olympus CF 160 video colonoscope was then inserted into the rectum and gradually advanced to the cecum without any difficulty. Careful examination was performed as the scope was gradually being withdrawn. The prep was excellent. The cecum, ascending colon, appeared normal. In the transverse colon there was a 3 mm sessile polyp removed by cold biopsy. Rest of the transverse colon, descending colon, sigmoid colon and rectum appeared normal. In the sigmoid there was a 7 mm polyp removed by snare polypectomy. Retroflexi on was performed in the rectum and no lesions were noted. Patient tolerated the procedure well. Impression: 1. Upper endoscopy revealed small hiatal hernia, LA grade B reflux esophagitis and mild antral gastritis 2. Colonoscopy revealed: 3 mm transverse colon polyp status post cold biopsy 7 mm sigmoid colon polyp status post snare polypectomy Recommendations: Findings of this examination were discussed with the patient as well a her family. She was advised to follow with the biopsy results. Advised to continue with omeprazole 20 mg daily and follow antireflux measures. Recommend repeat colonoscopy in 5 years from now based the biopsy results
[2022-08-11 07:38] VITALS: BP 148/82; PULSE 105
== END 2022-08-11 08:10 | disposition home or self-care (01) ==
LOC: ORWHC2ENDO 05:42
PROVIDERS: ATTEND Internal Medicine Gastroenterology
DX: Z12.11 Encounter for screening for malignant neoplasm of colon (principal); D12.3 Benign neoplasm of transverse colon; D12.5 Benign neoplasm of sigmoid colon; K29.50 Unspecified chronic gastritis without bleeding; K44.9 Diaphragmatic hernia without obstruction or gangrene; K21.00 Gastro-esophageal reflux disease with esophagitis, without bleeding; E78.5 Hyperlipidemia, unspecified; I49.3 Ventricular premature depolarization; M19.90 Unspecified osteoarthritis, unspecified site; Z88.0 Allergy status to penicillin; Z88.2 Allergy status to sulfonamides; Z79.899 Other long term (current) drug therapy; Z79.82 Long term (current) use of aspirin; Z98.890 Other specified postprocedural states
CPT/HCPCS: 45385; 45380; 43239; 88305; J2704; J2001

== ENCOUNTER → 2023-05-09 | Outpatient (CLI) | payer BC ==
[2023-05-09 09:07] LABS: Appearance,Urine Clear (Clear); Color,Urine Colorless
[2023-05-09 09:09] LABS: Bilirubin,Urine Negative (Negative); Blood,Urine Trace (Negative); Glucose,Urine (UA) Negative (Negative); Ketones,Urine Negative (Negative); Leukocyte Esterase,Urine Negative (Negative); Nitrite,Urine Negative (Negative); PH, Urine 6.5 (5.0-8.0); Protein,Urine Negative (Negative); Specific Gravity,Urine 1.005 (1.001-1.035); Urobilinogen,Urine 0.2 mg/dL (<2.0)
[2023-05-09 09:17] LABS: RBC,Urine 1 /hpf (0-5); Squamous Epithelial Cell,Urine <1 /hpf (0-4)
[2023-05-09 11:31] LABS: Microalbumin Creatinine Ratio <84 mg/g Cr (0-30); Urine Creatinine 14.3 mg/dL (28.0-217.0)
[2023-05-09 15:02] LABS: Basophils # (A) 0.07 X 10*3/uL (0.00-0.10); Basophils % (A) 1.1 %; Eosinophils # (A) 0.28 X 10*3/uL (0.04-0.35); Eosinophils % (A) 4.6 %; HCT 40.5 % (37.2-46.3); HGB 13.1 g/dL (12.0-15.0); Lymphocytes # (A) 1.67 X 10*3/uL (0.90-5.00); Lymphocytes % (A) 27.3 %; MCH 29.6 pg (27.0-32.0); MCHC 32.3 g/dL (32.0-37.0); MCV 91.6 FL (80.0-97.0); Mean Platelet Volume 9.5 FL (9.5-12.2); Monocytes # (A) 0.47 X 10*3/uL (0.20-1.00); Monocytes % (A) 7.7 %; NRBC Per 100 WBC 0 X 10*3/uL (0.00-0.01); Neutrophils # (A) 3.61 X 10*3/uL (1.80-7.70); Platelet Count 365 X 10*3/uL (140-440); RBC 4.42 X 10*6/uL (4.10-5.20); RDW 13.5 % (11.5-14.5); WBC 6.12 X 10*3/uL (4.50-10.00)
[2023-05-09 15:42] LABS: ALT 43 U/L (8-44); AST 26 U/L (13-35); Albumin 4.7 g/dL (3.8-4.9); Albumin/Globulin Ratio 1.96 Ratio (1.60-3.17); Alkaline Phosphatase 117 U/L (41-126); BUN/Creat Ratio 18.29 Ratio (12.00-20.00); Blood Urea Nitrogen 12.8 mg/dL (9.0-27.0); Calcium 10.1 mg/dL (8.7-10.3); Chloride 107 mmol/L (96-109); Chol/HDL Ratio 2.86 Ratio; Globulin 2.4 g/dL (1.6-3.3); Glucose 106 mg/dL (70-110); LDL Cholesterol,Calculated 65.3 mg/dL (0.0-131.0); Magnesium 2.2 mg/dL (1.5-2.4); Potassium 4.6 mmol/L (3.5-5.5); Sodium 145 mmol/L (135-145); Total Bilirubin 0.9 mg/dL (0.3-1.2); Total Protein 7.1 g/dL (6.2-8.2)
== END | disposition home or self-care (01) ==
LOC: LABWHC1 08:11
PROVIDERS: ATTEND Internal Medicine
DX: Z00.00 Encounter for general adult medical examination without abnormal findings (principal); I10 Essential (primary) hypertension; E11.9 Type 2 diabetes mellitus without complications; E78.2 Mixed hyperlipidemia
CPT/HCPCS: 36415; 80053; 80061; 81001; 82043; 82570; 83036; 83735; 84443; 85025

== ENCOUNTER → 2023-06-12 | Outpatient (CLI) | payer BC ==
[2023-06-12 11:03] VITALS: BP 136/83; PULSE 99; RESP 16; TEMP 97.9
--- NOTE | 2023-06-12 11:38 | P.HPOB ---
History of Present Illness H&P Date: 06/12/23 Chief Complaint: The patient is here for her routine gynecologic exam and ma mmogram. This is a 62-year-old with an LMP of 2014. The patient has been experiencing some pressure in the area of her bladder and also felt like she was having difficulty emptying the bladder completely. She has also had some urinary urgency without dysuria. Was mostly noted about 1 month ago and actually has improved since then. She had a urinalysis done by her PCP on 05/09/2023 which showed trace blood, rare mucous and low urine creatinine. She was asked to repeat the urine test by her PCP, which she has not yet done. She is otherwise without gynecologic complaints and denies any postmenopausal bleeding. She has a known small rectocele and she denies any significant problems from this. Review of Systems The patient's weight has been stable over the last year. She denies respiratory, cardiac, or G.I. problems. : See the HPI. Past Medical History Past Medical History: Diabetes Mellitus, GERD/Reflux, Hyperlipidemia, Osteoarthritis (OA) Additional Past Medical History / Comment(s): Type II diabetes-diet controlled, Osteopenia. Takes metoprolol for irregular heart rate @times. 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 BRCA 1/2 testing was negative 05/29/20. History of Any Multi-Drug Resistant Organisms: MRSA Date of last positivie culture/infection: 2008 MDRO Source:: buttocks Past Surgical History: Orthopedic Surgery Additional Past Surgical History / Comment(s): Right wrist surgery in 1984. Colonoscopy in 2013, arthroscopy left knee Past Anesthesia/Blood Transfusion Reactions: Postoperative Nausea & Vomiting ( PONV) Additional Past Anesthesia/Blood Transfusion Reaction / Comment(s): slow to wake up Past Psychological History: No Psychological Hx Reported Smoking Status: Never smoker Past Alcohol Use History: None Reported Past Drug Use History: None Reported Additional History: The patient has been since 1980. 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 - Past Family History Father Family Medical History: Diabetes Mellitus Additional Family Medical History / Comment(s): Colon polyps. Mother Family Medical History: Myocardial Infarction ([place]) Additional Family Medical History / Comment(s): Maternal aunt had breast cancer at age 39. Daughter(s) Additional Family Medical History / Comment(s): Benign breast tumor. 2 daughters have a history of uterine fibroids. Medications and Allergies Home Medications Medication Instructions Recorded Confirmed Type Multivitamins, Thera [Multivitamin] 1 each PO DAILY 10/09/13 06/12/23 History Omeprazole 20 mg PO AC-LUNCH PRN 10/09/13 06/12/23 History Aspirin 81 mg PO HS 01/21/20 06/12/23 History Cholecalciferol [Vitamin D3 (25 2,000 unit PO DAILY 01/21/20 06/12/23 History Mcg = 1000 Iu)] Cyanocobalamin (Vitamin B-12) 3,000 mcg PO DAILY 01/21/20 06/12/23 History [Vitamin B-12] L.acidoph,Paracasei, B.lactis 1 each PO DAILY 01/21/20 06/12/23 History [Probiotic] Ubidecarenone [Co Q-10] 200 mg PO Q2D 01/21/20 06/12/23 History Glucosamine/Chondro Bautista A [Cosamin 2 tablet PO DAILY 05/02/22 06/12/23 History Ds Tablet] Metoprolol Succinate [Metoprolol 12.5 mg PO DAILY 05/02/22 06/12/23 History Succinate ER] Rosuvastatin [Crestor] 20 mg PO DAILY 05/02/22 06/12/23 History lisinopriL 2.5 mg PO DAILY 05/02/22 06/12/23 History Allergies Allergy/AdvReac Type Severity Reaction Status Date / Time sulfamethoxazole AdvReac Severe Rash/Hives Verified 08/11/22 06:20 [From Bactrim] trimethoprim [From Bactrim] AdvReac Severe Rash/Hives Verified 08/11/22 06:20 penicillin V AdvReac Mild Rash/Hives Verified 08/11/22 06:20 Sulfa (Sulfonamide AdvReac Rash/Hives Verified 08/11/22 06:20 Antibiotics) Exam Vital Signs Temp Pulse Resp BP Pulse Ox 06/12/23 10:46 97.9 F 99 16 136/83 99 Intake and Output 06/11/23 06/12/23 06/12/23 22:59 06:59 14:59 Other: Weight 72.575 kg Height 5 feet 2 inches, weight 160 pounds, BMI 29.3. This is a well-developed well-nourished white female who is alert and oriented times 3 in no acute distress. HEENT: Within normal limits. NECK: Supple without mass or thyromegaly. CHEST AND LUNGS: Clear to auscultation. HEART: Regular rate and rhythm. BREASTS: Are without mass or discharge. AXILLARY EXAM: Negative for adenopathy. BACK: Negative for CVA tenderness. ABDOMEN: Soft, nontender, without palpable masses. PELVIC EXAM: Normal external genitalia with mild atrophy. Cervix has a 0.5 cm benign-appearing endocervical polyp at the 6 o'clock position which is unchanged from her previous exams. Cervix and vagina are otherwise unremarkable with mild atrophy. There is no unusual discharge. There is a stable grade 2 rectocele. The uterus is midposition, nongravid size and nontender. There are no palpable adnexal masses or tenderness. RECTAL EXAM: Rectovaginal exam is negative for mass or tenderness and is negative for occult blood. EXTREMITIES: Nontender. IMPRESSION: 1. 62-year-old menopausal female with stable asymptomatic endocervical polyp measuring 0.5 cm. This is unchanged. 2. Asymptomatic grade 2 rectocele. 3. Recent bladder pressure with mild urinary retention 1 month ago. Urinalysis done by the PCP 1 month ago showed trace blood. Symptoms have greatly resolved. I do not believe the symptoms that she had 1 month ago are gynecologic in nature. PLAN: 1. Pap smear was deferred since she had a negative Pap smear cotest on 05/02/2022. 2. Screening mammogram will be done today. 3. I recommended that she continue to follow-up with her PCP regarding repeat urine testing. I have also mentioned that if she continues to have blood noted on the urinalysis that she may need to have a urological evaluation. She will do the urine testing through her PCP as recommended. 4. Continue conservative management with her stable grade 2 rectocele and stable cervical polyp. 5. Osteoporosis prevention was discussed. We will plan on repeating the bone density test in 1 year at her annual well woman examination. 6. She was advised to return in one year for her annual well woman exam and as needed.
--- NOTE | 2023-06-13 19:53 | MM ---
Reason for Exam: Screening (asymptomatic). Last mammogram was performed 1 year(s) and 1 month(s) ago. Patient History: Menarche at age 11. First Full-Term at age 24. Postmenopausal. Patient has history of breast feeding. Patient used Hormonal Contraceptives for 3 years. Maternal aunt had breast cancer. Risk Values: Antonietta 5 year model risk: 1.7%. NCI Lifetime model risk: 7.4%. Prior Study Comparison: 01/21/2020 Bilateral Screening Mammogram, [facility]. 02/22/2021 Bilateral Screening Mammogram, [facility]. 05/02/2022 Bilateral MG 3D screening mammo w/cad, [facility]. Tissue Density: There are scattered fibroglandular densities. Findings: Analyzed By CAD. There is no suspicious group of microcalcifications or new suspicious mass in either breast. Overall Assessment: Negative, BI-RAD 1 Management: Screening Mammogram of both breasts in 1 year. Patient should continue monthly self-breast exams. A clinical breast exam by your physician is recommended on an annual basis. This exam should not preclude additional follow-up of suspicious palpable abnormalities. Note on Antonietta scores and lifetime risk: 1. A Antonietta score greater than 3% is considered moderate risk. If this is the case, consider specialist referral to assess eligibility for a risk reducing agent. 2. If overall lifetime risk for the development of breast cancer is 20% or higher, the patient may qualify for future screening with alternating mammogram and breast MRI. Electronically signed and approved by: Kirill Canchola M.D. Radiologist
== END ==
LOC: WWCWWP 10:34
PROVIDERS: ATTEND Obstetrics & Gynecology
DX: Z12.31 Encounter for screening mammogram for malignant neoplasm of breast (principal); E11.9 Type 2 diabetes mellitus without complications; K21.9 Gastro-esophageal reflux disease without esophagitis; M19.90 Unspecified osteoarthritis, unspecified site; M85.88 Other specified disorders of bone density and structure, other site; N81.6 Rectocele; Z86.14 Personal history of Methicillin resistant Staphylococcus aureus infection; Z78.0 Asymptomatic menopausal state; Z88.2 Allergy status to sulfonamides; Z88.0 Allergy status to penicillin; Z91.048 Other nonmedicinal substance allergy status; Z79.82 Long term (current) use of aspirin
CPT/HCPCS: 77063; 77067

== ENCOUNTER → 2023-11-15 | Outpatient (CLI) | payer BC ==
[2023-11-15 10:25] LABS: Appearance,Urine Clear (Clear); Bilirubin,Urine Negative (Negative); Blood,Urine Trace (Negative); Color,Urine Colorless; Glucose,Urine (UA) Negative (Negative); Ketones,Urine Negative (Negative); Leukocyte Esterase,Urine Negative (Negative); Nitrite,Urine Negative (Negative); Protein,Urine Negative (Negative); RBC,Urine 1 /hpf (0-5); Specific Gravity,Urine 1.002 (1.001-1.035); Urobilinogen,Urine <2.0 mg/dL (<2.0)
[2023-11-15 14:18] LABS: Basophils # (A) 0.06 X 10*3/uL (0.00-0.10); Eosinophils # (A) 0.24 X 10*3/uL (0.04-0.35); Eosinophils % (A) 3.9 %; HCT 42.1 % (37.2-46.3); Lymphocytes # (A) 1.78 X 10*3/uL (0.90-5.00); Lymphocytes % (A) 29.2 %; MCHC 30.9 g/dL (32.0-37.0); Mean Platelet Volume 9.7 FL (9.5-12.2); Monocytes # (A) 0.47 X 10*3/uL (0.20-1.00); Monocytes % (A) 7.7 %; NRBC Per 100 WBC 0 X 10*3/uL (0.00-0.01); Neutrophils # (A) 3.51 X 10*3/uL (1.80-7.70); Neutrophils % (A) 57.5 %; Platelet Count 340 X 10*3/uL (140-440); RBC 4.48 X 10*6/uL (4.10-5.20); RDW 13.4 % (11.5-14.5)
[2023-11-15 14:56] LABS: ALT 41 U/L (8-44); AST 26 U/L (13-35); Albumin 4.8 g/dL (3.8-4.9); Alkaline Phosphatase 115 U/L (41-126); BUN/Creat Ratio 14.88 Ratio (12.00-20.00); Blood Urea Nitrogen 11.9 mg/dL (9.0-27.0); Carbon Dioxide 24.4 mmol/L (21.6-31.8); Chloride 106 mmol/L (96-109); Chol/HDL Ratio 3.05 Ratio; Globulin 2.4 g/dL (1.6-3.3); Glucose 109 mg/dL (70-110); LDL Cholesterol,Calculated 80.2 mg/dL (0.0-131.0); Magnesium 2.3 mg/dL (1.5-2.4); Potassium 4.6 mmol/L (3.5-5.5); Sodium 144 mmol/L (135-145); Total Bilirubin 0.9 mg/dL (0.3-1.2); Total Protein 7.2 g/dL (6.2-8.2); Uric Acid 5.4 mg/dL (2.9-7.7)
[2023-11-15 20:45] LABS: Microalbumin Creatinine Ratio <92 mg/g Cr (0-30); Urine Creatinine 13.1 mg/dL (28.0-217.0)
== END | disposition home or self-care (01) ==
LOC: LABWHC1 09:15
PROVIDERS: ATTEND Internal Medicine
DX: I10 Essential (primary) hypertension (principal); E78.2 Mixed hyperlipidemia; E11.9 Type 2 diabetes mellitus without complications
CPT/HCPCS: 36415; 80053; 80061; 81001; 82043; 82570; 83036; 83735; 84443; 84550; 85025